=== PATIENT | male | born 1980 | race Two or more races ===

== ENCOUNTER 2023-11-24 13:37 | Emergency (ER) | payer OTHER, SELFPAY ==
[2023-11-24 13:41] VITALS: BP 126/105; PULSE 89; TEMP 37.3; O2SAT 95; BMI 24.2
--- NOTE | 2023-11-24 13:51 | ED_ITS ---
HPI HPI - Extremity Injury (Lower) General Chief Complaint: Extremity Injury, Lower Stated Complaint: LOWER LEFT EXTREMITY INJURY/BWC Time Seen by Provider: 11/24/23 13:39 Source: patient Mode of arrival: Wheelchair History of Present Illness HPI Narrative: Patient is a 43-year-old male who presents to the emergency department for the evaluation of an injury to the left foot that occurred at work 6 hours ago. P atient states that a 1200 pound bale came down on the dorsum of his left foot. He states that his employer would not let him stop working and required that he worked for an additional 6 hours before he was able to come to the ER. 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 No medications prior to arrival. He sustained a small laceration between the 4th and 5th toes. No other associated injuries. Related Data Previous Rx's ?Medication ?Instructions ?Recorded ketorolac 10 mg tablet 10 mg PO TID PRN pain #10 tabs 11/24/23 oxycodone-acetaminophen 5 mg-325 1 tab PO Q6H PRN pain 3 days #12 11/24/23 mg tablet (Percocet) tabs Allergies Allergy/AdvReac Type Severity Reaction Status Date / Time No Known Drug Allergies Allergy Verified 11/24/23 13:46 Opioid HPI Opioid Management Most Recent Pain and Opioid Data: No Data to Display Review of Systems ROS Constitutional Denies: fever or chills Ears, nose, mouth, and throat Denies: throat pain or nasal congestion Respiratory Denies: shortness of breath Gastrointestinal Denies: nausea or vomiting Musculoskeletal Reports: extremity pain and extremity swelling; Denies: back pain or neck pain Integumentary/Breast Denies: rash Neurological Denies: numbness in extremities or weakness in extremities Hematologic/Lymphatic Denies: easy bruising or easy bleeding Exam Narrative Exam Narrative: Gen.: Awake, alert, in no distress Head: Normocephalic, atraumatic ENT: Moist mucous membranes Respiratory: No respiratory distress Extremities: Pain out of proportion on exam of the left foot, ecchymosis noted to the left 4th and 5th toes with a small 1 cm laceration noted in the webspace between the 3rd and 4th toes with no active bleeding. Patient does not flex or extend the toes of the left foot. No swelling, ecchymosis or obvious deformity noted to the 1-3rd toes. No deep subcutaneous tissue exposure noted. No bony exposure or obvious deformity. Tenderness and ecchymosis noted on the dorsum of the foot, no proximal foot tenderness or swelling Psych: Normal mood and affect Neuro: No focal neuro deficit Skin: Warm, dry Constitutional Vital Signs, click to edit/add: Last Vital Signs Temp 99.2 F 11/24/23 13:41 Pulse 89 11/24/23 13:41 Resp 16 11/24/23 13:41 BP 126/105 H 11/24/23 13:41 Pulse Ox 95 11/24/23 13:41 O2 Del Method Room Air 11/24/23 13:41 Course Vital Signs Vital signs: Vital Signs Temperature 99.2 F 11/24/23 13:41 Pulse Rate 89 11/24/23 13:41 Respiratory Rate 16 11/24/23 13:41 Blood Pressure 126/105 H 11/24/23 13:41 Pulse Oximetry 95 11/24/23 13:41 Oxygen Delivery Method Room Air 11/24/23 13:41 Temperature 99.2 F 11/24/23 13:41 Pulse Rate 89 11/24/23 13:41 Respiratory Rate 16 11/24/23 13:41 Blood Pressure 126/105 H 11/24/23 13:41 Pulse Oximetry 95 11/24/23 13:41 Oxygen Delivery Method Room Air 11/24/23 13:41 MDM - Extremity Injury (Lower) MDM Narrative Medical decision making narrative: I asked this patient if he had a ride home from the emergency department, he stated his daughter could drive him as they only live a short distance, but his daughter states that she does not have a license or permit. I made the patient aware that his daughter could not illegally drive him home from the emergency department so that he could receive pain medication. He was treated with intramuscular Toradol, sent for CT of the foot with tetanus updated and bacitracin and dressing applied. Patient refused intramuscular Toradol and tetanus update. He will be started on Keflex, Percocet, oral Toradol for home. He is sent to occupational health for drug and alcohol testing. CT of the foot shows the patient has fractures of the distal phalanx of the left fourth and left fifth toes. No other acute process noted. Rest, ice, elevate. SUPERVISED APC VISIT, PHYSICIAN ATTESTATION: Based on the medical record the care appears appropriate. ? Medical Records Attestation: I reviewed the patient's medical records. Imaging Data CT foot: Attestation: I have reviewed the pertinent imaging results. Radiologist's impression: ITS Impressions Foot CT 11/24/23 14:01 IMPRESSION: Acute comminuted mildly displaced fracture of the fourth distal phalanx. Acute nondisplaced fracture of the fifth distal phalanx. No other fractures. No subluxations or dislocations. No substantial soft tissue hematoma. Mild degenerative changes scattered throughout the left foot. Remainder unremarkable. Electronically authenticated by: ELAYNE COOPER Date: 11/24/2023 14:50 Discharge Plan Discharge Chief Complaint: Extremity Injury, Lower Clinical Impression: Crush injury of left foot, Fracture of multiple toes, Laceration of foot Patient Disposition: Home, Self-Care Time of Disposition Decision: 15:07 Condition: Good Prescriptions / Home Meds: New ketorolac 10 mg tablet 10 mg PO TID PRN (Reason: pain) Qty: 10 0RF oxycodone-acetaminophen [Percocet] 5-325 mg tablet 1 tab PO Q6H PRN (Reason: pain) 3 Days Qty: 12 0RF Rx Instructions: DX: M79.672 Print Language: Divehi Instructions: Toe Fracture (ED), Crush Injury (ED) Referrals: Physician,Non-Staff, MD [Primary Care Provider] - 1 week
--- NOTE | 2023-11-24 13:54 | PC.NURSE ---
left foot 3rd and 4th toes bruised and swollen. small cut b/t toes observed
--- NOTE | 2023-11-24 14:01 | CT_ITS ---
The [address] [address] Patient Name: LAURENT MCGUIRE MRN: [id number] date: 1980 Sex: M Assigned Patient Location: ER Current Patient Location: ED.MAIN Accession/Order Number: [id number] Exam Date: 11/24/2023 13:57 Report Date: 11/24/2023 14:50 At the request of: JACOBY ZIMMER Procedure: CT foot LT wo con EXAM: CT scan of the left foot without contrast. Dose reduction technique used: Automated exposure control and/or adjustment of the mA and/or kV according to patient size and/or use of iterative reconstruction technique. REASON FOR EXAM: crush injury of foot COMPARISON: None CT/CT foot LT wo con IMPRESSION: Acute comminuted mildly displaced fracture of the fourth distal phalanx. Acute nondisplaced fracture of the fifth distal phalanx. No other fractures. No subluxations or dislocations. No substantial soft tissue hematoma. Mild degenerative changes scattered throughout the left foot. Remainder unremarkable. Electronically authenticated by: ELAYNE COOPER Date: 11/24/2023 14:50
[2023-11-24] MEDS: OXYCODONE HCL/ACETAMINOPHEN 5MG/325MG 1 TAB PO (14:14)
[2023-11-24] MEDS: BACITRACIN 0.9 GM PACKET 1 PACKET TOPICAL (14:14)
[2023-11-24 14:31] VITALS: BP 132/88
--- NOTE | 2023-11-24 15:01 | PC.NURSE ---
left foot 4tha nd 5th toes swollen and bruised. ice pack to site
== END 2023-11-24 15:32 | disposition home or self-care (01) ==
PROVIDERS: Emergency Provider Emergency Medicine
DX: S97.82XA Crushing injury of left foot, initial encounter (principal); S92.532A Displaced fracture of distal phalanx of left lesser toe(s), initial encounter for closed fracture; S91.312A Laceration without foreign body, left foot, initial encounter; W20.8XXA Other cause of strike by thrown, projected or falling object, initial encounter
CPT/HCPCS: 73700; 99284

== ENCOUNTER 2023-11-26 15:31 | Outpatient (OUT) | payer OTHER, SELFPAY ==
--- NOTE | 2023-11-26 15:33 | XR_ITS ---
The [place] [id number] Patient Name: LAURENT MCGUIRE MRN: [id number] date: 1980 Sex: M Assigned Patient Location: [facility] Current Patient Location: [facility] Accession/Order Number: [id number] Exam Date: 11/26/2023 15:35 Report Date: 11/26/2023 16:07 At the request of: RENETTA MOYA Procedure: XR foot LT min 3V EXAM: XR foot LT min 3V HISTORY: Crush Injury Left Foot COMPARISON: 11/24/2023 FINDINGS/IMPRESSION: 1. Lucency at the fourth distal phalanx, concerning for mildly displaced fracture. There is overlying soft tissue swelling. 2. Nondisplaced small fracture of the fifth distal phalanx. 3. No ankle joint effusion. 4. Fractures are similar as compared to 11/24/2023 CT Electronically authenticated by: TETE MELGAR Date: 11/26/2023 16:07
--- NOTE | 2023-11-26 15:33 | XR_ITS ---
[address] [address] Patient Name: LAURENT MCGUIRE MRN: [id number] date: 1980 Sex: M Assigned Patient Location: [facility] Current Patient Location: [facility] Accession/Order Number: [id number] Exam Date: 11/26/2023 15:35 Report Date: 11/26/2023 16:05 At the request of: RENETTA MOYA Procedure: XR hand RT min 3V EXAM: XR hand RT min 3V HISTORY: Right Hand Injury COMPARISON: None. FINDINGS/IMPRESSION: 1. No acute fracture or dislocation. 2. Normal alignment of the bones of the hand. 3. Normal alignment of the wrist. 4. Scapholunate and lunotriquetral intervals are maintained. Electronically authenticated by: TETE MELGAR Date: 11/26/2023 16:05
--- OUTSIDE RECORDS SUMMARY | 2023-11-26 15:40 | XMS_ITS | CCD ---
Author Organization [facility] Care Team Providers Care Garden Consultant Name Role Phone ALBA RICHMOND Attending Unavailable ADILENE BARRERA Primary Care Unavailable Adilene Barrera Primary Care Provider [phone] DR STEFANIE CLARKE Admitting Unavailable DR STEFANIE CLARKE Attending Unavailable DR STEFANIE CLARKE Consulting Unavailable Medications Current Medications Medication Drug Class(es) Dates Sig (Normalized) Sig (Original) clindamycin 300 mg oral capsule (1 source) Lincosamide Antibacterial Start: 01-11-2019 End: 01-21-2019 take 1 capsule by mouth three times daily clindamycin (CLEOCIN) 300 MG capsule Take 1 (one) capsule (300 mg total) by mouth 3 (three) times a day for 10 days . 30 capsule 0 01/11/2019 01/21/2019 Active ibuprofen 800 mg oral tablet (1 source) Nonsteroidal Anti-inflammatory Drug Start: 01-11-2019 End: 01-16-2019 take 1 tablet by mouth every six hours as needed ibuprofen (ADVIL,MOTRIN) 800 MG tablet Take 1 (one) tablet (800 mg total) by mouth every 6 (six) hours as needed . 20 tablet 0 01/11/2019 01/16/2019 Active Problems Problem Classification Problem Date Documented Da te Episodic/Chronic Disorders of teeth and jaw (6 sources) Toothache; Translations: [Other specified disorders of teeth and supporting structures] Onset: 04-20-2022 Episodic Nonspecific chest pain (1 source) Chest pain, unspecified; Translations: [CHEST PAIN UNSPECIFIED] Onset: 04-21-2022 Episodic Substance-related disorders (1 source) Nicotine dependence, cigarettes, uncomplicated; Translations: [NICOTINE DEPEND CIGARETTES UNCOMP] Onset: 04-21-2022 Chronic Vital Signs Date Time Vital Sign Value Performing Clinician Faci lity 01-11-2019 12:56-0400 Body Temperature 98.49 [degF] Jeremy Richmond [facility] 01-11-2019 12:56-0400 BP Diastolic 78 mm[Hg] Alba Bojorquezi ll [facility] 01-11-2019 12:56-0400 BP Systolic 133 mm[Hg] Alba Cueva l [facility] 01-11-2019 12:56-0400 Pulse (Heart Rate) 66 /min Jeremy Richmond [facility] 01-11-2019 12:56-0400 Pulse Oximetry 98 % Alba greene [facility] 01-11-2019 12:56-0400 Respiratory Rate 16 /min Alba Richmond [facility] Encounters Encounter Date Encounter Type Care Provider Facility Start: 04-20-2022 End: 04-20-[address] STEFANIE CLARKE Facility: Start: 01-11-2019 End: 01-11-2019 [facility] Start: 01-11-2019 End: 01-11-2019 Emergency department patient visit Alba Richmond Work Phone: [facility] Emergency Department Comment on above: Pain, dental (Primar y Dx) Payers Date Payer Category Payer Medicaid [facility] MANAGED [facility] MEDICAID COMMUNITY PLAN xxxxxxxxx 2018-Present xxxxxxxxx [id number] 1980 Unknown [id number] 1980 Unknown [id number] 1961 Medicaid [id number] Social History Date Type Detail Facility Start: 01-11-2019 Tobacco smoking status NHIS Current every day smoker [facility] Start: 01-11-2019 Alcohol intake Ex-drinker (finding) [facility] Start: 01-11-2019 History SDOH Alcohol Frequency 1 [facility] Sex Assigned At Not on file [place] [facility] Summary Purpose Family History No Family History Records FoundNo Family History Records Found Advance Directives No Advanced Directives Records FoundDocuments on File Type Date Recorded 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 Follow-up with your dentist within 1 to 3 days. Take Tylenol and Motrin for pain. If symptoms worsen or persist may present back to the ER. * Attachments The following attachments cannot be sent through Care Everywhere. * Tooth and Gum Pain (Italian) documented in this encounter Assessments Diagnosis Pain, dental- Primary Additional Source Comments (unrecognized sect ion and content) No Status Records FoundNo Status Records Found INFORMATION SOURCE (unrecogn ized section and content) DATE CREATED AUTHOR 01/11/2019 [facility] DATE CREATED AUTHOR AUTHOR'S ORGANIZ ATION 04/29/2022 [facility] Reason for Visit (unrecogniz ed section and content) Reason Comments Dental Pain Kathi Huerta PA-C - 01/11/2019 1:18 PM EDTGracia Aviles RN - 01/11/2019 12:55 PM EDT ED Notes (unrecognized secti on and content) ED PROVIDER NOTE [facility] EMERGENCY DEPARTMENT NAME: Laurent Larkin AGE: 38 y.o. : 1980 VISIT DATE: 01/11/2019 CSN: [id number] PCP: Adilene Barrera MD Chief Complaint Patient presents with Dental Pain Patient presents to the emergency department with a complaint of dental pain. Patient states that he broke his tooth several years ago. States her last 3 to 4 days it has been very painful. States he thinks he is developing infection. States that he missed an appointment with [facility] dental clinic. Denies fever or chills. Denies sore throat or difficulty swallowing. Denies all other symptoms at this time. History reviewed. No pertinent past medical history. Past Surgical History: Procedure Laterality Date WRIST SURGERY History reviewed. No pertinent family history. Social History Socioeconomic History Marital status: Legally Spouse name: Not on file Number of children: Not on file Years of education: Not on file Highest education level: Not on file Occupational History Not on file Social Needs Financial resource strain: Not on file Food insecurity: Worry: Not on file Inability: Not on file Transportation needs: Medical: Not on file Non-medical: Not on file Tobacco Use Smoking status: Current Every Day Smoker Packs/day: 0.00 Smokeless tobacco: Never Used Substance and Sexual Activity Alcohol use: Not Currently Frequency: Never Drug use: Yes Types: Marijuana Sexual activity: Not on file Lifestyle Physical activity: Days per week: Not on file Minutes per session: Not on file Stress: Not on file Relationships Social connections: Talks on phone: Not on file Gets together: Not on file Attends anabaptism service: Not on file Active member of club or organization: Not on file Attends meetings of clubs or organizations: Not on file Relationship status: Not on file Other Topics Concern Not on file Social History Narrative Not on file No current outpatient medications on file prior to encounter. No Known Allergies Review of Systems Constitutional: Negative for activity change, chills, fatigue and fever. HENT: Positive for dental problem. Negative for congestion, ear pain, hearing loss, postnasal drip, rhinorrhea, sore throat and trouble swallowing. Eyes: Negative for photophobia, pain, redness and visual disturbance. Respiratory: Negative for cough, chest tightness, shortness of breath and wheezing. Cardiovascular: Negative for chest pain, palpitations and leg swelling. Gastrointestinal: Negative for abdominal pain, constipation, diarrhea, nausea and vomiting. Genitourinary: Negative for difficulty urinating, dysuria, hematuria and urgency. Musculoskeletal: Negative for arthralgias, back pain, myalgias, neck pain and neck stiffness. Skin: Negative for color change and rash. Neurological: Negative for dizziness, speech difficulty, weakness, numbness and headaches. Psychiatric/Behavioral: Negative for agitation and suicidal ideas. The patient is not nervous/anxious. All other systems reviewed and are negative. Patient Vitals for the past 24 hrs: BP Temp Temp src Pulse Resp SpO2 01/11/19 1256 133/78 98.5 F (36.9 C) Oral 66 16 98 % Physical Exam Vitals signs and nursing note reviewed. Constitutional: General: He is not in acute distress. Appearance: He is well-developed and normal weight. He is not toxic-appearing. HENT: Head: Normocephalic and atraumatic. Right Ear: Tympanic membrane, ear canal and external ear normal. Left Ear: Tympanic membrane, ear canal and external ear normal. Nose: Nose normal. Mouth/Throat: Mouth: Mucous membranes are moist. Comments: Several dental caries Tooth #7 is fractured Slight erythema identified around tooth #7 without any fluctuance or abscess identified Eyes: Extraocular Movements: Extraocular movements intact. Conjunctiva/sclera: Conjunctivae normal. Neck: Musculoskeletal: Normal range of motion and neck supple. Cardiovascular: Rate and Rhythm: Normal rate and regular rhythm. Pulses: Normal pulses. Heart sounds: Normal heart sounds. Pulmonary: Effort: Pulmonary effort is normal. Breath sounds: Normal breath sounds. Musculoskeletal: Normal range of motion. General: No deformity. Lymphadenopathy: Cervical: No cervical adenopathy. Skin: General: Skin is warm and dry. Capillary Refill: Capillary refill takes less than 2 seconds. Findings: No rash. Neurological: General: No focal deficit present. Mental Status: He is alert and oriented to person, place, and time. Psychiatric: Mood and Affect: Mood normal. Laboratory & Radiographic Imaging (if done): No results found for this visit on 01/11/19. No orders to display Procedures MDM Number of Diagnoses or Management Options Diagnosis management comments: Patient will be covered for possible dental infection. He is told to take ibuprofen and Tylenol for pain. Asked to follow-up with his dentist within 1 to 3 days. Risk of Complications, Morbidity, and/or Mortality Presenting problems: minimal Diagnostic procedures: minimal Management options: minimal Patient Progress Patient progress: stable The patient has been informed that they may have pre-hypertension or hypertension based on a blood pressure reading in the Emergency Department. I recommend that the patient call the primary care provider listed on their discharge instructions or a physician of their choice as soon as possible to arrange follow-up in the next 4 weeks for further evaluation of possible pre-hypertension or hypertension. . Clinical Impression: 1. Pain, dental ED Disposition ED Disposition Condition Comment Discharge Stable Laurent Larkin discharged to home/self care in stable condition. Follow-up Information 1. [facility]. [address] [place] [id number] Contact information for after-discharge care Follow-up information has not been specified. New Prescriptions clindamycin (CLEOCIN) 300 MG capsule Take 1 (one) capsule (300 mg total) by mouth 3 (three) times a day for 10 days . ibuprofen (ADVIL,MOTRIN) 800 MG tablet Take 1 (one) tablet (800 mg total) by mouth every 6 (six) hours as needed . Kathi Huerta PA-C 01/11/19 1323 States tooth pain to r upper tooth documented in this encounter ED Attestation Note - Alba Richmond MD - 01/11/2019 1:14 PM EDT Miscellaneous Notes (unrecog nized section and content) ED Attestation: I did not see this patient. However, I was personally available for consult in the ED for this patient, if the Advanced Practice Provider (PORTER) needed any assistance. The PORTER evaluated the patient independently for a complaint of Dental Pain, and completed their own examination, documentation, and discharge. documented in this encounter FOR RECORDS PERTAINING TO PATIENTS WHO ARE OR HAVE BEEN ENROLLED IN A CHEMICAL DEPENDENCY/SUBSTANCEABUSE PROGRAM, SOME INFORMATION MAY BE OMITTED. This clinical summary was aggregated from multiple sources. Caution should be exercised in using it in the provision of clinical care. This summary normalizes information from multiple sources, and as a consequence, information in this document may materially change the coding, format and clinical context of patient data. In addition, data may be omitted in some cases. CLINICAL DECISIONS SHOULD BE BASED ON THE PRIMARY CLINICAL RECORDS. [facility] provides no warranty or guarantee of the accuracy or completeness of information in this document.
== END 2023-11-26 15:32 | disposition home or self-care (01) ==
LOC: RAD 15:31
PROVIDERS: Visit Provider Nurse Practitioner Family
DX: S97.82XA Crushing injury of left foot, initial encounter (principal); S60.221A Contusion of right hand, initial encounter; S92.535A Nondisplaced fracture of distal phalanx of left lesser toe(s), initial encounter for closed fracture
CPT/HCPCS: 73130; 73630

== ENCOUNTER 2023-12-16 14:26 | Outpatient (OUT) | payer SELFPAY ==
--- NOTE | 2023-12-16 14:31 | XR_ITS ---
The [address] [address] Patient Name: LAURENT MCGUIRE MRN: [id number] date: 1980 Sex: M Assigned Patient Location: [facility] Current Patient Location: [facility] Accession/Order Number: [id number] Exam Date: 12/16/2023 14:40 Report Date: 12/16/2023 14:59 At the request of: RENETTA MOYA Procedure: XR foot LT min 3V PROCEDURE: XR foot LT min 3V HISTORY: 4th and 5th Toe Fracture COMPARISON: XR foot left 11/26/2023 FINDINGS: BONES:Increased lucency of previously seen fracture lines involving the fourth and 5th distal phalanx compatible with bone resorption as part of early bone healing. SOFT TISSUES:No visible soft tissue swelling. EFFUSION:None visible. OTHER: Negative. XR/XR foot LT min 3V IMPRESSION: 1. Ongoing osseous changes and bone resorption involving the fourth and 5th distal phalanx of the left foot, suspected to be part of early osseous healing. Follow-up recommended. Electronically authenticated by: DERREK BARAKAT Date: 12/16/2023 14:59
== END 2023-12-16 14:27 | disposition home or self-care (01) ==
LOC: RAD 14:28
PROVIDERS: Visit Provider Nurse Practitioner Family
DX: S92.535D Nondisplaced fracture of distal phalanx of left lesser toe(s), subsequent encounter for fracture with routine healing (principal)
CPT/HCPCS: 73630

== ENCOUNTER 2024-01-13 14:59 | Outpatient (OUT) | payer OTHER, SELFPAY ==
--- NOTE | 2024-01-13 | XR_ITS ---
The [address] [address] Patient Name: LAURENT MCGUIRE MRN: [id number] date: 1980 Sex: M Assigned Patient Location: [facility] Current Patient Location: [facility] Accession/Order Number: [id number] Exam Date: 01/13/2024 15:15 Report Date: 01/13/2024 15:46 At the request of: RENETTA MOYA Procedure: XR foot LT min 3V PROCEDURE: XR foot LT min 3V HISTORY: FRACTURE LEFT 4TH/5TH TOES, CRUSH INJURY LEFT FOOT COMPARISON: XR foot left 12/16/2023 FINDINGS: BONES:Severe comminuted fractures of the tip of the fourth and 5th distal phalanx with evidence of bone resorption at the fracture lines. SOFT TISSUES:No visible soft tissue swelling. EFFUSION:None visible. OTHER: Negative. XR/XR foot LT min 3V IMPRESSION: 1. Stable comminuted fractures of the fourth and 5th distal phalanx. Stable bone resorption likely from early bone healing. No callus formation at this time. Electronically authenticated by: DERREK BARAKAT Date: 01/13/2024 15:46
== END 2024-01-13 15:00 | disposition home or self-care (01) ==
LOC: RAD 15:02
PROVIDERS: Visit Provider Nurse Practitioner Family
DX: S97.82XD Crushing injury of left foot, subsequent encounter (principal); S92.535D Nondisplaced fracture of distal phalanx of left lesser toe(s), subsequent encounter for fracture with routine healing
CPT/HCPCS: 73630